=== PATIENT | male | born 1980 | race African-American/Black ===

== ENCOUNTER 2016-12-31 13:57 | Emergency (ER) | payer MEDICAID, OTHER ==
[~2016-12-31] VITALS: Ht 172.7 cm; Wt 77.1 kg
[~2016-12-31 13:57] MED LIST: CYCLOBENZAPRINE10 MG ORAL; IBUPROFEN600 MG ORAL
[2016-12-31 16:09] VITALS: BP 159/89
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
[2016-12-31] MEDS ORDERED: IBUPROFEN600 MG ORAL (16:21)
[2016-12-31] MEDS ORDERED: NORCO 5-325 TA1 EAC1 ORAL (16:22)
[2016-12-31 16:28] VITALS: BP 159/89
--- NOTE | 2016-12-31 18:28 | Diagnostic Imaging Report ---
Indication: PAIN Technique: 3 views hand Comparison: none Findings: There is a chronic appearing fracture deformity of the distal second metacarpal. No acute fractures. No dislocations. Joint spaces are preserved. Impression: No acute process
== END 2016-12-31 17:02 | disposition home or self-care (01) ==
LOC: EMR 16:10
DX: S62.91XA Unspecified fracture of right hand, initial encounter for closed fracture (principal); Y04.2XXA Assault by strike against or bumped into by another person, initial encounter; Y92.89 Other specified places as the place of occurrence of the external cause; J45.909 Unspecified asthma, uncomplicated; I10 Essential (primary) hypertension
CPT/HCPCS: 29125; 29240; 99284

== ENCOUNTER → 2017-08-22 | Emergency (ER) | payer MEDICAID ==
[~2017-08-22] VITALS: Ht 172.7 cm; Wt 81.6 kg
[~2017-08-22] MED LIST changes: +METHOCARBAMOL500 MG ORAL; +NKM; +NORCO 5-325 TA1 EAC1 ORAL; +PSEUDOEPHEDRINE30 MG PO; +ZOFRAN ODT4 MG ORAL
[2017-08-22 18:49] VITALS: BP 157/99
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
== END | disposition left against medical advice (07) ==
LOC: EMR 19:04
DX: R51 Headache (principal); Z53.21 Procedure and treatment not carried out due to patient leaving prior to being seen by health care provider
CPT/HCPCS: 99282

== ENCOUNTER 2017-08-23 15:47 | Emergency (ER) | payer MEDICAID ==
[~2017-08-23] VITALS: Ht 172.7 cm; Wt 68.0 kg
[~2017-08-23 15:47] MED LIST changes: -METHOCARBAMOL500 MG ORAL; -PSEUDOEPHEDRINE30 MG PO; -ZOFRAN ODT4 MG ORAL
[2017-08-23 16:42] VITALS: BP 149/119
[2017-08-23] MEDS ORDERED: PSEUDOEPHEDRINE30 MG PO (17:07)
[2017-08-23] MEDS ORDERED: ZOFRAN ODT4 MG ORAL (17:07)
[2017-08-23] MEDS ORDERED: IBUPROFEN600 MG ORAL (17:07)
[2017-08-23] MEDS ORDERED: METHOCARBAMOL500 MG ORAL (17:07)
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
[2017-08-23 17:18] VITALS: BP 149/119
== END 2017-08-23 17:18 | disposition home or self-care (01) ==
LOC: EMR 17:08
DX: M54.2 Cervicalgia (principal); V43.52XA Car driver injured in collision with other type car in traffic accident, initial encounter; Y92.414 Local residential or business street as the place of occurrence of the external cause; J45.909 Unspecified asthma, uncomplicated; R09.81 Nasal congestion; I10 Essential (primary) hypertension
CPT/HCPCS: 99282

== ENCOUNTER 2018-02-02 13:23 | Emergency (ER) | payer MEDICAID ==
[~2018-02-02] VITALS: Ht 170.2 cm; Wt 81.6 kg
[~2018-02-02 13:23] MED LIST changes: +METHOCARBAMOL500 MG ORAL; +PSEUDOEPHEDRINE30 MG PO; +ZOFRAN ODT4 MG ORAL
[2018-02-02] MEDS ORDERED: LOSARTAN POTASS50 MG ORAL (13:37)
[2018-02-02] MEDS ORDERED: TENORMIN50 MG ORAL (13:37)
--- NOTE | 2018-02-02 14:27 | Diagnostic Imaging Report ---
Indication: Pain Technique: XRAY Foot Complete R Comparison: None Findings: There is an acute fracture through the base of the first distal phalanx that extends to the articular surface. There is overlying soft tissue swelling. No additional fracture identified. Lisfranc alignment of the foot is preserved. No radiopaque foreign body seen. Impression: Fracture of the first distal phalanx as above.
[2018-02-02] MEDS ORDERED: Norco 5mg/325mg tab ORAL ONE (14:30)
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
[2018-02-02] MEDS ORDERED: IBUPROFEN600 MG ORAL (14:36)
[2018-02-02] MEDS ORDERED: NORCO 5-325 TA1 EACH ORAL (14:36)
[2018-02-02 14:57] VITALS: BP 160/117
== END 2018-02-02 15:06 | disposition home or self-care (01) ==
LOC: EMR 13:55
DX: S92.421A Displaced fracture of distal phalanx of right great toe, initial encounter for closed fracture (principal); W22.8XXA Striking against or struck by other objects, initial encounter; Y92.9 Unspecified place or not applicable; I10 Essential (primary) hypertension; J45.909 Unspecified asthma, uncomplicated
CPT/HCPCS: 99283

== ENCOUNTER 2018-02-14 09:58 | Emergency (ER) | payer MEDICAID ==
[~2018-02-14] VITALS: Ht 172.7 cm; Wt 77.1 kg
[~2018-02-14 09:58] MED LIST changes: +LOSARTAN POTASS50 MG ORAL; +NORCO 5-325 TA1 EACH ORAL; +TENORMIN50 MG ORAL
[2018-02-14 10:38] VITALS: BP 168/112
[2018-02-14 11:55] VITALS: BP 168/112
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
== END 2018-02-14 11:55 | disposition left against medical advice (07) ==
LOC: EMR 10:37
DX: S92.401D Displaced unspecified fracture of right great toe, subsequent encounter for fracture with routine healing (principal); X58.XXXD Exposure to other specified factors, subsequent encounter; Z76.0 Encounter for issue of repeat prescription; I10 Essential (primary) hypertension; J45.909 Unspecified asthma, uncomplicated
CPT/HCPCS: 99282

== ENCOUNTER 2018-05-28 09:16 | Emergency (ER) | payer MEDICAID ==
[~2018-05-28] VITALS: Ht 172.7 cm; Wt 77.1 kg
--- NOTE | 2018-05-28 11:02 | Emergency Room Report ---
History of Present Illness General Chief Complaint: Lower Extremity Injury Source: Patient Present Illness HPI This patient states that a week ago he stubbed his right small toe. He states that since that time he's continued to have pain especially when he puts on a shoe. He states that the swelling has improved. He has no other injury or complaint. Allergies: Coded Allergies: No Known Allergies (Unverified , 10/04/15) Patient History Past Medical History: HTN, asthma Social History: Denies: smoking, alcohol use, drug use Reviewed Nursing Documentation: PMH: Agreed; PSxH: Agreed Nursing Documentation-PMH Past Medical History: No History, Except For Hx Hypertension: Yes Hx Asthma: Yes Review of Systems All Other Systems: negative except mentioned in HPI Physical Exam Vital Signs Date Time Temp Pulse Resp B/P (MAP) Pulse Ox O2 Delivery O2 Flow Rate FiO2 05/28/18 09:33 98.2 74 16 191/138 98 Room Air Sp02 EP Interpretation: reviewed, normal General Appearance: no apparent distress, alert, GCS 15, non-toxic Head: normocephalic, atraumatic Eyes: bilateral eye normal inspection ENT: hearing grossly normal, normal pharynx, no angioedema, normal voice Neck: full range of motion Respiratory: no respiratory distress, no retraction, no accessory muscle use, speaking full sentences Gastrointestinal: normal bowel sounds, non tender, soft, non-distended, no guarding, no rebound Rectal: deferred Genitourinary: normal inspection, no CVA tenderness Musculoskeletal: back normal, gait/station normal, normal range of motion, other - TTP over the R. 5th toe. No ecchymosis Neurologic: alert, oriented x3, responsive, motor strength/tone normal, sensory intact, speech normal Psychiatric: judgement/insight normal, memory normal, mood/affect normal, no suicidal/homicidal ideation Skin: normal color, no rash, warm/dry, well hydrated Procedures Splinting Splinting : Consent: Verbal Location: Foot Pre-Made Type: ortho shoe Splint: reinaldo tape Pre-Proc Neuro Vasc Exam: normal Post-Proc Neuro Vasc Exam: normal Patient Tolerated: Well Complications: None Medical Decision Making Diagnostic Impression: Primary Impression: Fracture of fifth toe, right, closed ER Course This patient has a fifth toe fracture. It is minimally to nondisplaced. The toe was reinaldo taped to the adjacent toe and the patient was placed in a hard soled shoe. The patient was instructed to follow-up with his primary care physician. Patient's given close return precautions and follow up instructions. Other X-Ray Diagnostic Results Other X-Ray Diagnostic Results : X-Ray ordered: Toe # of Views/Limited Vs Complete: Complete Indication: Pain EP Interpretation: Yes Interpretation: other - Non-displaced fx of proximal phalanx R. 5th toe. Impression: Other - See above Electronically Signed by: Ryann Last Vital Signs Date Time Temp Pulse Resp B/P (MAP) Pulse Ox O2 Delivery O2 Flow Rate FiO2 05/28/18 09:33 98.2 74 16 191/138 98 Room Air Status: improved Disposition: HOME, SELF-CARE Condition: Improved Referrals: ABIODUN LAW,REFERRING (PCP) Lilia Hoang DO May 28, 2018 11:02
[2018-05-28] MEDS ORDERED: IBUPROFEN800 MG ORAL (11:03)
[2018-05-28 11:06] VITALS: BP 169/99
--- NOTE | 2018-05-28 11:46 | Diagnostic Imaging Report ---
Indication: Trauma, pain Technique: 3 views of the right toes Comparison: none Findings: There is a nondisplaced slightly angulated oblique fracture of the fifth proximal phalanx. Fused fourth and fifth the IP-normal anatomic variants. No other acute fractures. No dislocations. Impression: Positive for slightly angulated fifth proximal phalangeal fracture. Findings previously discussed by phone with Dr. Moe in the emergency room
== END 2018-05-28 11:15 | disposition home or self-care (01) ==
LOC: EMR 10:10
DX: S92.514A Nondisplaced fracture of proximal phalanx of right lesser toe(s), initial encounter for closed fracture (principal); X58.XXXA Exposure to other specified factors, initial encounter; Y92.9 Unspecified place or not applicable; I10 Essential (primary) hypertension; J45.909 Unspecified asthma, uncomplicated
CPT/HCPCS: 29515; 99284

== ENCOUNTER 2018-09-19 22:12 | Emergency (ER) | payer MEDICAID ==
[~2018-09-19] VITALS: Ht 172.7 cm; Wt 81.6 kg
[~2018-09-19 22:12] MED LIST changes: +IBUPROFEN800 MG ORAL
--- NOTE | 2018-09-19 22:15 | NUR ---
ED Nurse Note: NO ANSWER FROM PT IN LOBBY
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
[2018-09-19 22:48] VITALS: BP 157/96
== END 2018-09-19 23:00 | disposition home or self-care (01) ==
LOC: EMR 22:49
DX: S01.81XA Laceration without foreign body of other part of head, initial encounter (principal); Y04.0XXA Assault by unarmed brawl or fight, initial encounter
CPT/HCPCS: 12011; 99282; Z7502